=== PATIENT | female | born 1990 | race African-American/Black ===

== ENCOUNTER 2022-01-18 16:02 | Emergency (ER) | payer MEDICAID, OTHER ==
[~2022-01-18] VITALS: Ht 165.1 cm; Wt 98.0 kg
[2022-01-18] MEDS ORDERED: TETRACAINE 0.5% OPHTH DROPS 4ML RIGHTEYE ONE (16:15)
[2022-01-18 16:35] LABS: BASOPHILS % 0.6 % (0.0-2.0); HEMATOCRIT. 38.5 % (36.0-48.0); HEMOGLOBIN. 13.3 g/dL (12.0-16.0); LYMPHOCYTES % 12.5 % (20.0-50.0); MEAN CORPUSCULAR HEMOGLOBIN 30.4 pg (28.0-32.0); MONOCYTES % 8.2 % (2.0-8.0); NEUTROPHILS % 78.7 % (40.0-76.0); RED BLOOD CELL COUNT 4.38 mill/uL (4.2-5.4); RED CELL DISTRIBUTION WIDTH 12.7 % (11.6-14.6)
[2022-01-18 16:40] LABS: CHLORIDE 107 mEq/L (98-107)
[2022-01-18 17:03] LABS: MEAN PLATELET VOLUME 8.8 fl (7.4-10.4); PLATELET 220 x1000/uL (130-400)
[2022-01-18] MEDS ORDERED: ACETAMINOPHEN 500MG TABLET PO ONE (18:15)
[2022-01-18] MEDS ORDERED: SODIUM CHLORIDE 0.9% 1,000 ML IV ONE (18:15)
[2022-01-18] MEDS ORDERED: PROCHLORPERAZINE 10MG/2ML VIAL IV PRN (18:15)
[2022-01-18] MEDS ORDERED: DIPHENHYDRAMINE 50MG/ML VIAL IV ONE (18:15)
[2022-01-18 18:36] LABS: CLARITY URINE CLEAR (CLEAR); COLOR URINE YELLOW (YELLOW); KETONES URINE NEGATIVE (NEGATIVE); LEUKOCYTE ESTERASE URINE NEGATIVE (NEGATIVE); NITRITE URINE NEGATIVE (NEGATIVE); OCCULT BLOOD URINE NEGATIVE (NEGATIVE); PROTEIN URINE NEGATIVE (NEGATIVE); SPECIFIC GRAVITY URINE 1.019 (1.005-1.030); UROBILINOGEN URINE 0.2 E.U./dL (0.2-1.0)
[2022-01-18] MEDS ORDERED: KETOROLAC 15MG/ML VIAL IV ONE (20:15)
[2022-01-18 21:40] VITALS: BP 122/76
== END 2022-01-18 21:41 | disposition home or self-care (01) ==
LOC: ER 16:02
DX: R51.9 Headache, unspecified (principal)
CPT/HCPCS: 36415; 70450; 80053; 81003; 85025; 96374; 96375; 99284; J1200; J1885; J7030; Z7610

== ENCOUNTER 2022-01-22 14:04 | Inpatient (IN) | payer OTHER ==
[~2022-01-22] VITALS: Ht 162.6 cm; Wt 89.6 kg
[2022-01-22] MEDS ORDERED: ACETAMINOPHEN 325MG TABLET PO NR (15:15)
[2022-01-22] MEDS ORDERED: KETOROLAC 15MG/ML VIAL IV NR (15:15)
[2022-01-22] MEDS ORDERED: SODIUM CHLORIDE 0.9% 1,000 ML IV NR (15:30)
[2022-01-22 15:55] LABS: CHLORIDE 101 mEq/L (98-107)
[2022-01-22 16:07] LABS: BASOPHILS % 0.5 % (0.0-2.0); EOSINOPHILS % 0.2 % (0.0-5.0); HEMATOCRIT. 41.2 % (36.0-48.0); HEMOGLOBIN. 13.9 g/dL (12.0-16.0); LYMPHOCYTES % 10.7 % (20.0-50.0); MEAN CORPUSCULAR HEMOGLOBIN 29.5 pg (28.0-32.0); MEAN CORPUSCULAR VOLUME 87.2 fL (81.0-99.0); MONOCYTES % 7.7 % (2.0-8.0); NEUTROPHILS % 80.9 % (40.0-76.0); PLATELET 239 x1000/uL (130-400); RED BLOOD CELL COUNT 4.73 mill/uL (4.2-5.4); RED CELL DISTRIBUTION WIDTH 12.4 % (11.6-14.6)
[2022-01-22] MEDS ORDERED: CEFTRIAXONE 2 G PREMIX 50 ML IV ONE (18:30)
[2022-01-22] MEDS ORDERED: ACYCLOVIR INJ 750 MG in DEXT 5% WATER 100 ML IV SCH (18:30)
[2022-01-22] MEDS ORDERED: LACTATED RINGERS 1,000 ML IV SCH (18:30)
[2022-01-22] MEDS ORDERED: VANCOMYCIN 1G PREMIX 200 ML IV SCH (18:30)
[2022-01-22] MEDS: ACYCLOVIR INJ 750 MG in DEXT 5% WATER 100 ML IV SCH (20:20)
[2022-01-23] MEDS: ACETAMINOPHEN 325MG TABLET PO PRN ×4 (00:34→20:48)
[2022-01-23] MEDS: ACYCLOVIR INJ 750 MG in DEXT 5% WATER 100 ML IV SCH (03:30)
[2022-01-23 05:32] VITALS: BP 147/62
[2022-01-23] MEDS ORDERED: ONDANSETRON HCL 4MG/2ML INJ IV PRN (07:45)
[2022-01-23] MEDS ORDERED: ACYCLOVIR INJ 750 MG in DEXT 5% WATER 125 ML IV SCH (07:45)
[2022-01-23 08:15] VITALS: BP 129/78
[2022-01-23 09:40] VITALS: BP 133/80
[2022-01-23] MEDS: METOPROLOL TARTRATE 50MG TABLET PO SCH ×2 (09:44→20:48)
[2022-01-23] MEDS: ACYCLOVIR INJ 550 MG in DEXT 5% WATER 100 ML IV SCH ×2 (11:29→19:40)
[2022-01-23] MEDS: IBUPROFEN 600MG TABLET PO PRN ×3 (11:29→22:12)
[2022-01-23 11:54] VITALS: BP 101/53
[2022-01-23] MEDS: VANCOMYCIN 1G PREMIX 200 ML IV SCH (12:46)
[2022-01-23] MEDS: CEFTRIAXONE 2 G in DEXTROSE 5% WATER 50 ML IV SCH (15:06)
[2022-01-23] MEDS ORDERED: CEFTRIAXONE 2 G PREMIX 50 ML IV SCH (15:30)
[2022-01-23 16:19] LABS: BASOPHILS % 0.2 % (0.0-2.0); HEMATOCRIT. 38.2 % (36.0-48.0); HEMOGLOBIN. 12.7 g/dL (12.0-16.0); MEAN CORPUSCULAR HEMOGLOBIN 29.4 pg (28.0-32.0); MEAN CORPUSCULAR VOLUME 88.5 fL (81.0-99.0); MEAN PLATELET VOLUME 8.1 fl (7.4-10.4); MONOCYTES % 6.5 % (2.0-8.0); NEUTROPHILS % 81.3 % (40.0-76.0); PLATELET 213 x1000/uL (130-400); RED BLOOD CELL COUNT 4.31 mill/uL (4.2-5.4); RED CELL DISTRIBUTION WIDTH 12.6 % (11.6-14.6)
[2022-01-23 16:26] LABS: CHLORIDE 105 mEq/L (98-107)
[2022-01-23 16:51] VITALS: BP 96/58
[2022-01-23 20:00] VITALS: BP 113/62
[2022-01-23] MEDS ORDERED: CEFTRIAXONE 2 G in DEXTROSE 5% WATER 50 ML IV SCH (20:00)
[2022-01-24 00:01] VITALS: BP 104/53
[2022-01-24] MEDS: VANCOMYCIN 1G PREMIX 200 ML IV SCH ×2 (00:48→13:06)
[2022-01-24] MEDS: CEFTRIAXONE 2 G in DEXTROSE 5% WATER 50 ML IV SCH ×2 (02:47→14:46)
[2022-01-24] MEDS: ACYCLOVIR INJ 550 MG in DEXT 5% WATER 100 ML IV SCH ×3 (03:54→20:37)
[2022-01-24 04:00] VITALS: BP 100/58
[2022-01-24 06:25] LABS: HEMATOCRIT. 43.4 % (36.0-48.0); HEMOGLOBIN. 14.1 g/dL (12.0-16.0); MEAN CORPUSCULAR HEMOGLOBIN 29.2 pg (28.0-32.0); MEAN PLATELET VOLUME 8.2 fl (7.4-10.4); PLATELET 197 x1000/uL (130-400); RED BLOOD CELL COUNT 4.82 mill/uL (4.2-5.4); RED CELL DISTRIBUTION WIDTH 12.7 % (11.6-14.6)
[2022-01-24 08:00] VITALS: BP 115/70
[2022-01-24] MEDS: METOPROLOL TARTRATE 50MG TABLET PO SCH ×2 (08:30→20:38)
[2022-01-24] MEDS: ACETAMINOPHEN 325MG TABLET PO PRN ×2 (08:30→14:46)
[2022-01-24 08:51] LABS: CHLORIDE 104 mEq/L (98-107)
[2022-01-24 10:01] LABS: INR 1.2; PARTIAL THROMBOPLASTIN TIME 40.5 sec (23.4-31.0)
[2022-01-24 12:00] VITALS: BP 97/52
[2022-01-24 13:03] LABS: GLUCOSE CSF 83 mg/dL (41-75)
[2022-01-24 16:00] VITALS: BP 101/54
[2022-01-24 17:06] LABS: PLATELET ESTIMATE NORMAL
[2022-01-24 20:00] VITALS: BP 108/54
[2022-01-24] MEDS: IBUPROFEN 600MG TABLET PO PRN (20:37)
[2022-01-25] VITALS: BP 104/40
[2022-01-25] MEDS: VANCOMYCIN 1G PREMIX 200 ML IV SCH (02:26)
[2022-01-25 04:00] VITALS: BP 95/50
[2022-01-25] MEDS: CEFTRIAXONE 2 G in DEXTROSE 5% WATER 50 ML IV SCH ×2 (04:25→14:23)
[2022-01-25] MEDS: ACYCLOVIR INJ 550 MG in DEXT 5% WATER 100 ML IV SCH ×3 (04:48→20:23)
[2022-01-25 07:22] LABS: BASOPHILS % 0.2 % (0.0-2.0); HEMATOCRIT. 36.9 % (36.0-48.0); HEMOGLOBIN. 12.4 g/dL (12.0-16.0); LYMPHOCYTES % 7.5 % (20.0-50.0); MEAN CORPUSCULAR HEMOGLOBIN 29.4 pg (28.0-32.0); MEAN CORPUSCULAR VOLUME 87.7 fL (81.0-99.0); MEAN PLATELET VOLUME 8.3 fl (7.4-10.4); MONOCYTES % 6.9 % (2.0-8.0); NEUTROPHILS % 85.4 % (40.0-76.0); PLATELET 239 x1000/uL (130-400); RED BLOOD CELL COUNT 4.21 mill/uL (4.2-5.4); RED CELL DISTRIBUTION WIDTH 12.8 % (11.6-14.6)
[2022-01-25 08:00] VITALS: BP 115/76
[2022-01-25] MEDS ORDERED: POTASSIUM CHLORIDE 20MEQ TABLET SR PO NR (08:00)
[2022-01-25] MEDS: METOPROLOL TARTRATE 50MG TABLET PO SCH ×2 (08:31→20:35)
[2022-01-25] MEDS ORDERED: VANCOMYCIN 1,000 MG in DEXT 5% WATER 250 ML IV SCH ×2 (09:30→16:00)
[2022-01-25] MEDS: ACETAMINOPHEN 325MG TABLET PO PRN (11:04)
[2022-01-25 12:00] VITALS: BP 120/70
[2022-01-25] MEDS: IBUPROFEN 600MG TABLET PO PRN (14:31)
[2022-01-25 16:00] VITALS: BP 109/55
[2022-01-25 20:00] VITALS: BP 102/55
[2022-01-26] VITALS: BP 112/63
[2022-01-26] MEDS: ACETAMINOPHEN 325MG TABLET PO PRN ×3 (00:58→18:33)
[2022-01-26] MEDS: CEFTRIAXONE 2 G in DEXTROSE 5% WATER 50 ML IV SCH ×2 (02:04→14:02)
[2022-01-26 04:00] VITALS: BP 120/53
[2022-01-26 07:47] LABS: CLARITY URINE TURBID (CLEAR); COLOR URINE YELLOW (YELLOW); KETONES URINE 1+ (NEGATIVE); LEUKOCYTE ESTERASE URINE 2+ (NEGATIVE); NITRITE URINE NEGATIVE (NEGATIVE); OCCULT BLOOD URINE 2+ (NEGATIVE); PH URINE 5.5 (4.5-8.0); PROTEIN URINE 2+ (NEGATIVE); SPECIFIC GRAVITY URINE 1.021 (1.005-1.030); UROBILINOGEN URINE 0.2 E.U./dL (0.2-1.0)
[2022-01-26 08:00] VITALS: BP 115/69
[2022-01-26] MEDS: METOPROLOL TARTRATE 50MG TABLET PO SCH ×2 (08:41→20:47)
[2022-01-26 08:42] LABS: HEMATOCRIT. 37.1 % (36.0-48.0); HEMOGLOBIN. 12.5 g/dL (12.0-16.0); MEAN CORPUSCULAR HEMOGLOBIN 29.6 pg (28.0-32.0); MEAN CORPUSCULAR VOLUME 87.8 fL (81.0-99.0); MEAN PLATELET VOLUME 8.3 fl (7.4-10.4); PLATELET 326 x1000/uL (130-400); RED BLOOD CELL COUNT 4.23 mill/uL (4.2-5.4); RED CELL DISTRIBUTION WIDTH 13.1 % (11.6-14.6)
[2022-01-26 12:00] VITALS: BP 109/53
[2022-01-26] MEDS: SODIUM CHLORIDE 0.9% 1,000 ML IV SCH (13:45)
[2022-01-26 14:05] LABS: PLATELET ESTIMATE NORMAL
[2022-01-26 16:00] VITALS: BP 119/73
[2022-01-26 20:00] VITALS: BP 106/51
[2022-01-27] MEDS: ACETAMINOPHEN 325MG TABLET PO PRN ×3 (01:15→21:10)
[2022-01-27] MEDS: CEFTRIAXONE 2 G in DEXTROSE 5% WATER 50 ML IV SCH ×2 (03:00→15:15)
[2022-01-27 04:00] VITALS: BP 102/49
[2022-01-27 08:00] VITALS: BP 91/43
[2022-01-27] MEDS ORDERED: LIDOCAINE HCL 1% 10 MG/ML 10ML VIAL ONE (08:38)
[2022-01-27 09:42] VITALS: BP 119/83
[2022-01-27] MEDS: METOPROLOL TARTRATE 50MG TABLET PO SCH ×2 (09:42→21:10)
[2022-01-27] MEDS: SODIUM CHLORIDE 0.9% 1,000 ML IV SCH (09:44)
[2022-01-27 12:00] VITALS: BP 124/76
[2022-01-27 16:00] VITALS: BP 106/55
[2022-01-27 16:26] LABS: BASOPHILS % 0.2 % (0.0-2.0); HEMATOCRIT. 33.5 % (36.0-48.0); HEMOGLOBIN. 11.2 g/dL (12.0-16.0); MEAN CORPUSCULAR HEMOGLOBIN 28.9 pg (28.0-32.0); MEAN CORPUSCULAR VOLUME 86.8 fL (81.0-99.0); MEAN PLATELET VOLUME 7.6 fl (7.4-10.4); MONOCYTES % 10.1 % (2.0-8.0); NEUTROPHILS % 81.7 % (40.0-76.0); PLATELET 334 x1000/uL (130-400); RED BLOOD CELL COUNT 3.86 mill/uL (4.2-5.4); RED CELL DISTRIBUTION WIDTH 13.4 % (11.6-14.6)
[2022-01-27 20:00] VITALS: BP 116/79
[2022-01-28] VITALS: BP 114/60
[2022-01-28] MEDS: SODIUM CHLORIDE 0.9% 1,000 ML IV SCH ×3 (00:27→20:47)
[2022-01-28] MEDS: METHYLPREDNISOLONE SOD SUCC 40 MG/ML VIAL IV SCH ×4 (02:37→21:14)
[2022-01-28] MEDS: AZATHIOPRINE 50MG TABLET PO SCH ×2 (02:37→12:13)
[2022-01-28] MEDS: DAPSONE 100MG TABLET PO SCH ×2 (02:38→12:14)
[2022-01-28] MEDS: COLCHICINE 0.6MG TABLET PO SCH ×2 (02:38→12:14)
[2022-01-28] MEDS: CEFTRIAXONE 2 G in DEXTROSE 5% WATER 50 ML IV SCH ×2 (02:47→16:48)
[2022-01-28 04:00] VITALS: BP 120/68
[2022-01-28 07:35] LABS: HEMATOCRIT. 33.9 % (36.0-48.0); HEMOGLOBIN. 11.3 g/dL (12.0-16.0); MEAN CORPUSCULAR HEMOGLOBIN 29.2 pg (28.0-32.0); MEAN CORPUSCULAR VOLUME 87.4 fL (81.0-99.0); MEAN PLATELET VOLUME 7.9 fl (7.4-10.4); PLATELET 331 x1000/uL (130-400); RED BLOOD CELL COUNT 3.88 mill/uL (4.2-5.4); RED CELL DISTRIBUTION WIDTH 13.5 % (11.6-14.6)
[2022-01-28 07:50] LABS: HEPATITIS B SURFACE ANTIGEN NEGATIVE
[2022-01-28 08:00] VITALS: BP 122/68
[2022-01-28 09:00] LABS: *HSV 1 DNA PCR NEGATIVE
[2022-01-28] MEDS: METOPROLOL TARTRATE 50MG TABLET PO SCH ×2 (09:00→20:43)
[2022-01-28 09:02] LABS: *HSV 2 DNA PCR NEGATIVE
[2022-01-28 12:00] VITALS: BP 96/57
[2022-01-28] MEDS: TRIAMCINOLONE ACETONIDE 0.1% CREAM 15GM TOP SCH ×2 (12:14→20:45)
[2022-01-28 13:23] LABS: PLATELET ESTIMATE NORMAL
[2022-01-28 13:32] LABS: CREATINE KINASE 37 IU/L (26-192)
[2022-01-28 16:00] VITALS: BP 118/72
[2022-01-28 20:00] VITALS: BP 120/78
[2022-01-28] MEDS ORDERED: DIGOXIN 500MCG/2ML AMP IV NR (23:45)
[2022-01-29] VITALS: BP 97/57
[2022-01-29] MEDS: CEFTRIAXONE 2 G in DEXTROSE 5% WATER 50 ML IV SCH (02:48)
[2022-01-29] MEDS: SODIUM CHLORIDE 0.9% 1,000 ML IV SCH ×2 (05:21→14:56)
[2022-01-29] MEDS: METHYLPREDNISOLONE SOD SUCC 40 MG/ML VIAL IV SCH ×3 (05:22→21:50)
[2022-01-29] MEDS: METOPROLOL TARTRATE 50MG TABLET PO SCH (09:00)
[2022-01-29 09:07] LABS: G6PD RBC 3.85 x10E6/uL (3.77-5.28)
[2022-01-29 09:45] LABS: HEMATOCRIT. 34.3 % (36.0-48.0); HEMOGLOBIN. 11.6 g/dL (12.0-16.0); MEAN CORPUSCULAR HEMOGLOBIN 29.7 pg (28.0-32.0); MEAN CORPUSCULAR VOLUME 88.3 fL (81.0-99.0); MEAN PLATELET VOLUME 7.5 fl (7.4-10.4); PLATELET 380 x1000/uL (130-400); RED BLOOD CELL COUNT 3.89 mill/uL (4.2-5.4); RED CELL DISTRIBUTION WIDTH 13.6 % (11.6-14.6)
[2022-01-29 09:56] LABS: CHLORIDE 108 mEq/L (98-107)
[2022-01-29] MEDS: COLCHICINE 0.6MG TABLET PO SCH (10:28)
[2022-01-29] MEDS: TRIAMCINOLONE ACETONIDE 0.1% CREAM 15GM TOP SCH ×2 (10:28→21:51)
[2022-01-29] MEDS: DAPSONE 100MG TABLET PO SCH (10:28)
[2022-01-29] MEDS: DOCUSATE SODIUM 100MG CAPSULE PO SCH ×2 (10:28→16:55)
[2022-01-29] MEDS: AZATHIOPRINE 50MG TABLET PO SCH (10:28)
[2022-01-29 12:00] VITALS: BP 99/76
[2022-01-29 15:07] LABS: G6PD QUANTITATIVE 344 (155-399)
[2022-01-29 15:27] LABS: CHLORIDE 108 mEq/L (98-107)
[2022-01-29 15:58] LABS: PLATELET ESTIMATE NORMAL
[2022-01-29 16:00] VITALS: BP 108/47
[2022-01-29 20:00] VITALS: BP 98/50
[2022-01-29] MEDS: METOPROLOL TARTRATE 25MG TABLET PO SCH (21:00)
[2022-01-30] VITALS (8 sets, daily range): BP systolic 98–124; BP diastolic 49–81
[2022-01-30] MEDS: SODIUM CHLORIDE 0.9% 1,000 ML IV SCH ×3 (03:13→22:27)
[2022-01-30] MEDS: METHYLPREDNISOLONE SOD SUCC 40 MG/ML VIAL IV SCH ×3 (06:22→22:12)
[2022-01-30 07:48] LABS: CHLORIDE 113 mEq/L (98-107)
[2022-01-30] MEDS: METOPROLOL TARTRATE 25MG TABLET PO SCH ×2 (08:51→22:13)
[2022-01-30] MEDS: COLCHICINE 0.6MG TABLET PO SCH (08:56)
[2022-01-30] MEDS: AZATHIOPRINE 50MG TABLET PO SCH (08:56)
[2022-01-30] MEDS: DAPSONE 100MG TABLET PO SCH (08:56)
[2022-01-30] MEDS: DOCUSATE SODIUM 100MG CAPSULE PO SCH ×2 (08:56→16:50)
[2022-01-30] MEDS: TRIAMCINOLONE ACETONIDE 0.1% CREAM 15GM TOP SCH ×2 (10:47→22:57)
[2022-01-30] MEDS ORDERED: METOPROLOL TARTRATE 25MG TABLET PO NR (11:45)
[2022-01-30] MEDS ORDERED: TC1C15 TOP (11:56)
[2022-01-30] MEDS ORDERED: AZAT50TA24 PO (11:56)
[2022-01-30] MEDS ORDERED: COLC0.6C3 MT (11:56)
[2022-01-30] MEDS ORDERED: P20 MT (11:56)
[2022-01-30] MEDS ORDERED: DAPS100T PO (11:56)
[2022-01-30 13:06] LABS: ANGIOTENSION CONVERTING ENZYME 53 U/L (14-82)
[2022-01-31 00:21] VITALS: BP 122/79
[2022-01-31 04:00] VITALS: BP 106/64
[2022-01-31] MEDS: METHYLPREDNISOLONE SOD SUCC 40 MG/ML VIAL IV SCH ×2 (05:53→14:47)
[2022-01-31 07:15] LABS: CHLORIDE 112 mEq/L (98-107)
[2022-01-31 07:24] LABS: HEMATOCRIT. 31.1 % (36.0-48.0); MEAN CORPUSCULAR HEMOGLOBIN 28.9 pg (28.0-32.0); MEAN CORPUSCULAR VOLUME 89.8 fL (81.0-99.0); MEAN PLATELET VOLUME 7.2 fl (7.4-10.4); PLATELET 340 x1000/uL (130-400); RED BLOOD CELL COUNT 3.46 mill/uL (4.2-5.4); RED CELL DISTRIBUTION WIDTH 14.3 % (11.6-14.6)
[2022-01-31] MEDS: METOPROLOL TARTRATE 25MG TABLET PO SCH (09:00)
[2022-01-31 09:07] LABS: GLOMERULAR BASEMENT MEMB AB 3 units (0-20)
[2022-01-31] MEDS: DAPSONE 100MG TABLET PO SCH (09:11)
[2022-01-31] MEDS: DOCUSATE SODIUM 100MG CAPSULE PO SCH ×2 (09:11→17:00)
[2022-01-31] MEDS: COLCHICINE 0.6MG TABLET PO SCH (09:11)
[2022-01-31] MEDS: AZATHIOPRINE 50MG TABLET PO SCH (09:11)
[2022-01-31] MEDS: TRIAMCINOLONE ACETONIDE 0.1% CREAM 15GM TOP SCH (09:12)
[2022-01-31] MEDS: SODIUM CHLORIDE 0.9% 1,000 ML IV SCH (09:12)
[2022-01-31 10:09] LABS: ALDOLASE 5.8 U/L (3.3-10.3); ANTI-DNA DOUBLE STRANDED QUANT < 1 IU/mL (0-9)
[2022-01-31 10:45] LABS: BG CARBOXYHEMOGLOBIN 0.5 % (0.5-1.5); BG DEOXYHEMOGLOBIN 3.2 % (0.0-5.0); BG HCO3 ACT 24.4 mmol/L (22.0-26.0); BG METHEMOGLOBIN 17.3 % (0.0-1.5); BG OXYGEN SATURATION 96.1 % (92.0-98.5); BG PCO2 38.9 mmHg (35.0-45.0); BG PH 7.416 (7.350-7.450); BG PO2 81.4 mmHg (75.0-100.0); BG TOTAL HEMOGLOBIN 11.4 g/dL (12.0-18.0)
[2022-01-31 12:00] VITALS: BP 111/67
[2022-01-31] MEDS ORDERED: DILTIAZEM HCL 5MG/ML 5ML VIAL IV ONE (12:30)
[2022-01-31 14:11] VITALS: BP 111/67
[2022-01-31 14:18] LABS: ACTIN (SMOOTH MUSCLE) ANTIBODY 5 Units (0-19)
[2022-01-31 14:26] LABS: PLATELET ESTIMATE NORMAL
[2022-01-31 16:00] VITALS: BP 100/82
[2022-01-31 17:07] LABS: ANA IFA Negative (.)
[2022-02-01 13:07] LABS: ATYPICAL P-ANCA <1:20 titer (Neg:<1:20); CYTOPLASMIC C-ANCA <1:20 titer (Neg:<1:20); PERINUCLEAR P-ANCA <1:20 titer (Neg:<1:20)
[2022-02-01 14:08] LABS: ANTI-MYELOPEROXIDASE AB < 9.0 U/mL (0.0-9.0); ANTI-PROTEINASE 3 ABS < 3.5 U/mL (0.0-3.5)
== END 2022-01-31 17:25 | disposition home or self-care (01) | DRG 663 ==
LOC: ER 14:04 → MICUSO 19:47 → EDBEDREQ 19:49 → 8WST 01-23 04:46 → 7WST 01-23 07:58 → 7EST 01-23 19:49
PROVIDERS: ADMIT Internal Medicine; ATTEND Internal Medicine
PROC: 00JU3ZZ Inspection of Spinal Canal, Percutaneous Approach (ICD-10-PCS; principal; 2022-01-22)
PROC: 009U3ZX Drainage of Spinal Canal, Percutaneous Approach, Diagnostic (ICD-10-PCS; 2022-01-24)
PROC: B01BZZZ Fluoroscopy of Spinal Cord (ICD-10-PCS; 2022-01-24)
PROC: 02HV33Z Insertion of Infusion Device into Superior Vena Cava, Percutaneous Approach (ICD-10-PCS; 2022-01-27)
PROC: B518ZZA Fluoroscopy of Superior Vena Cava, Guidance (ICD-10-PCS; 2022-01-27)
PROC: B548ZZA Ultrasonography of Superior Vena Cava, Guidance (ICD-10-PCS; 2022-01-27)
DX: D89.89 Other specified disorders involving the immune mechanism, not elsewhere classified (principal); N17.9 Acute kidney failure, unspecified; D69.2 Other nonthrombocytopenic purpura; E44.1 Mild protein-calorie malnutrition; E87.1 Hypo-osmolality and hyponatremia; D74.9 Methemoglobinemia, unspecified; R65.10 Systemic inflammatory response syndrome (SIRS) of non-infectious origin without acute organ dysfunction; I48.91 Unspecified atrial fibrillation; E66.9 Obesity, unspecified; R21 Rash and other nonspecific skin eruption; H53.8 Other visual disturbances; R51.9 Headache, unspecified; Z20.822 Contact with and (suspected) exposure to COVID-19; H10.33 Unspecified acute conjunctivitis, bilateral; N39.0 Urinary tract infection, site not specified; N14.1 Nephropathy induced by other drugs, medicaments and biological substances; T39.395A Adverse effect of other nonsteroidal anti-inflammatory drugs [NSAID], initial encounter; I77.6 Arteritis, unspecified; Z68.33 Body mass index [BMI] 33.0-33.9, adult; Z71.3 Dietary counseling and surveillance; Y92.89 Other specified places as the place of occurrence of the external cause
CPT/HCPCS: 36415; 36573; 36600; 62328; 71045; 76770; 80048; 80053; 80202; 81003; 82085; 82164; 82375; 82550; 82595; 82805; 82945; 82955; 83520; 84145; 84157; 85025; 85041; 85651; 86141; 86160; 86225; 86256; 86332; 86431; 86705; 86709; 86803; 87070; 87340; 87426; 87529; 93005; 93306; 99285; C1725; C1893; J0133; J0696; J1160; J1885; J2920; J3370; J3490; J7030; J7060; J7500; U0003; U0005